=== PATIENT | female | born 2000 | race Caucasian/White ===

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

== ENCOUNTER 2022-05-20 13:40 | Emergency (ER) | payer MEDICAID, OTHER | END 2022-05-20 14:41 | disposition home or self-care (01) | LOC: JP.ED 13:40 | DX: Z30.432 Encounter for removal of intrauterine contraceptive device (principal); Z88.0 Allergy status to penicillin | CPT/HCPCS: 99282; 99283 ==

== ENCOUNTER 2022-12-27 19:19 | Inpatient (IN) | payer MEDICAID ==
[2022-12-27 19:34] LABS: BASOPHILS ABSOLUTE AUTO 0.04 K/uL (0.00-0.10); BASOPHILS PERCENT AUTO 0.4 % (0.1-1.3); EOSINOPHILS ABSOLUTE AUTO 0.03 K/uL (0.00-0.40); EOSINOPHILS PERCENT AUTO 0.3 % (0.0-5.4); HEMATOCRIT 42.8 % (34.3-46.0); HEMOGLOBIN 14.5 g/dL (11.2-15.5); IMMATURE GRAN ABSOLUTE AUTO 0.13 K/uL (0.00-0.23); IMMATURE GRAN PERCENT AUTO 1.2 % (0.0-0.7); LYMPHOCYTES ABSOLUTE AUTO 2.34 K/uL (0.8-3.3); LYMPHOCYTES PERCENT AUTO 21.8 % (11.4-47.7); MEAN CORPUSCULAR HEMOGLOBIN 29.1 pg (31.6-35.5); MEAN CORPUSCULAR HGB CONC 33.9 g/dL (31.6-35.5); MEAN CORPUSCULAR VOLUME 85.8 fL (81.4-99.0); MONOCYTES ABSOLUTE AUTO 0.54 K/uL (0.20-0.90); NEUTROPHILS ABSOLUTE AUTO 7.64 K/uL (1.0-7.6); NEUTROPHILS PERCENT AUTO 71.3 % (40.0-78.1); PLATELET COUNT,PLT 208 K/uL (130-375); RED BLOOD CELL COUNT 4.99 M/uL (3.77-5.24); WHITE BLOOD CELL COUNT,WBC 10.7 K/uL (3.2-11.0)
[2022-12-27] MEDS ORDERED: HYDROmorphone 0.5 MG/0.5 ML Syringe IVPUSH ONE (19:35)
[2022-12-27] MEDS ORDERED: Ondansetron 4 MG/2 ML SDV IVPUSH ONE (19:35)
[2022-12-27] MEDS ORDERED: Sodium Chloride 0.9% 50 ML IV SCH (19:45)
[2022-12-27] MEDS ORDERED: Iopamidol 612 MG/ML 100 ML Bottle IV SCH (19:45)
[2022-12-27] MEDS ORDERED: Sodium Chloride 0.9% 1,000 ML IV SCH (19:45)
[2022-12-27 19:51] LABS: A/G RATIO 1.3 (1.2-2.2); ALANINE AMINOTRANSFERASE,ALT 26 U/L (12-78); ALBUMIN 4.2 g/dL (3.4-5.0); ALKALINE PHOSPHATASE 119 U/L (46-116); ASPARTATE AMNIOTRANSFERASE,AST 24 U/L (15-37); BILIRUBIN TOTAL 0.5 mg/dL (0.2-1.0); BLOOD UREA NITROGEN,BUN 15 mg/dL (7-18); CALCIUM 8.6 mg/dL (8.5-10.1); CARBON DIOXIDE,CO2 20 mmol/L (21-32); CHLORIDE,CL 103 mmol/L (100-108); ESTIMATED GFR 83 mL/min (>60); GLUCOSE RANDOM 89 mg/dL (74-106); POTASSIUM,K 3.8 mmol/L (3.6-5.2); PROTEIN TOTAL,TP 7.5 g/dL (6.4-8.2); SODIUM,NA 138 mmol/L (140-148)
[2022-12-27 19:52] LABS: ANION GAP 18.8 mmol/L (5.0-14.0)
[2022-12-27] MEDS ORDERED: HYDROmorphone 1 MG/ML Syringe IVPUSH ONE ×2 (20:13→22:47)
[2022-12-27] MEDS ORDERED: Naloxone 0.4 MG/ML SDV IVPUSH PRN (22:47)
[2022-12-28] MEDS ORDERED: Acetaminophen 325 MG Tab PO PRN (00:24)
[2022-12-28] MEDS ORDERED: Ondansetron 4 MG/2 ML SDV IV PRN (00:24)
[2022-12-28] MEDS ORDERED: Pantoprazole 40 MG Vial IV ONE (00:24)
[2022-12-28] MEDS ORDERED: Ondansetron 4 MG Tab.DIS PO PRN (00:24)
[2022-12-28] MEDS ORDERED: Naloxone 0.4 MG/ML SDV IVPUSH PRN (00:24)
[2022-12-28] MEDS ORDERED: LORazepam 2 MG/ML SDV IV PRN (00:24)
[2022-12-28 00:37] LABS: HEMATOCRIT 36.6 % (34.3-46.0); HEMOGLOBIN 12.3 g/dL (11.2-15.5)
[2022-12-28] MEDS: HYDROmorphone 1 MG/ML Syringe IVPUSH PRN ×7 (01:35→23:18)
[2022-12-28] MEDS: Sodium Chloride 0.9% 1,000 ML IV SCH ×3 (01:38→13:20)
[2022-12-28] MEDS: Docusate Sodium 100 MG Cap PO SCH ×3 (01:42→20:18)
[2022-12-28] MEDS ORDERED: Sodium Chloride 0.9% 500 ML IV ONE (04:11)
[2022-12-28 04:40] LABS: APPEARANCE,URINE CLEAR (CLEAR); BILIRUBIN,URINE NEGATIVE (NEGATIVE); COLOR,URINE YELLOW (YELLOW); GLUCOSE,URINE NEGATIVE (NEGATIVE); KETONES,URINE 15 mg/dL (NEGATIVE); LEUKOCYTE ESTERASE,URINE NEGATIVE (NEGATIVE); NITRITE,URINE NEGATIVE (NEGATIVE); OCCULT BLOOD,URINE NEGATIVE (NEGATIVE); PH,URINE 5.5 (5.0-8.0); PROTEIN,URINE NEGATIVE (NEGATIVE); UROBILINOGEN,URINE 0.2 EU/dL (0.2-1.0)
[2022-12-28 04:45] LABS: AMORPHOUS SEDIMENT,URINE NOT SEEN; BACTERIA,URINE RARE; EPITHELIAL CELLS,URINE RARE; MUCUS,URINE FEW; RBC,URINE 0-5 (0-5); WBC,URINE 0-5 (0-5)
[2022-12-28] MEDS: Acetaminophen/HYDROcodone 325-5 MG Tab PO PRN ×4 (05:15→20:19)
[2022-12-28 07:23] LABS: HEMATOCRIT 34.2 % (34.3-46.0); HEMOGLOBIN 11.2 g/dL (11.2-15.5)
[2022-12-28] MEDS: Cyclobenzaprine 10 MG Tab PO PRN ×2 (09:43→23:12)
[2022-12-28] MEDS: diphenhydrAMINE 25 MG Cap PO PRN ×2 (15:25→20:28)
[2022-12-29] MEDS: Acetaminophen/HYDROcodone 325-5 MG Tab PO PRN ×2 (00:22→08:03)
[2022-12-29] MEDS ORDERED: Diazepam 2 MG Tab PO PRN (02:14)
[2022-12-29] MEDS ORDERED: HYDROmorphone 1 MG/ML Syringe IVPUSH PRN (02:32)
[2022-12-29] MEDS ORDERED: Lidocaine 4% 1 each Patch TOP SCH (03:00)
[2022-12-29] MEDS: Ketorolac 30 MG/ML SDV IVPUSH SCH ×2 (04:19→08:35)
[2022-12-29 06:02] LABS: HEMATOCRIT 34.8 % (34.3-46.0); HEMOGLOBIN 11.2 g/dL (11.2-15.5); MEAN CORPUSCULAR HEMOGLOBIN 28.9 pg (31.6-35.5); MEAN CORPUSCULAR HGB CONC 32.2 g/dL (31.6-35.5); MEAN CORPUSCULAR VOLUME 89.7 fL (81.4-99.0); RED BLOOD CELL COUNT 3.88 M/uL (3.77-5.24); WHITE BLOOD CELL COUNT,WBC 6.1 K/uL (3.2-11.0)
[2022-12-29 06:18] LABS: ANION GAP 9.6 mmol/L (5.0-14.0); CALCIUM 7.6 mg/dL (8.5-10.1); CREATININE 0.9 mg/dL (0.6-1.0); EST CRCL DRUG DOSING (CG) 86.1 mL/min; POTASSIUM,K 3.6 mmol/L (3.6-5.2)
[2022-12-29] MEDS: Docusate Sodium 100 MG Cap PO SCH (08:03)
[2022-12-29] MEDS: diphenhydrAMINE 25 MG Cap PO PRN (10:02)
[2022-12-29] MEDS: Cyclobenzaprine 10 MG Tab PO PRN (10:02)
[2022-12-29] MEDS ORDERED: Ibuprofen 600 MG Tab PO PRN (10:02)
[2022-12-29] MEDS ORDERED: oxyCODONE 5 MG Tab PO PRN (10:03)
[2022-12-30] MEDS ORDERED: Lidocaine 4% 1 each Patch TOP SCH (09:00)
== END 2022-12-29 15:47 | disposition home or self-care (01) | DRG 552 ==
LOC: JP.ED 19:19 → JP.ICU 23:13 → OBSVTOIN 12-28 15:50
PROVIDERS: ADMIT Internal Medicine; ATTEND Internal Medicine
DX: S32.010A Wedge compression fracture of first lumbar vertebra, initial encounter for closed fracture (principal); S32.592A Other specified fracture of left pubis, initial encounter for closed fracture; K31.9 Disease of stomach and duodenum, unspecified; F41.9 Anxiety disorder, unspecified; F32.A Depression, unspecified; F90.9 Attention-deficit hyperactivity disorder, unspecified type; F17.210 Nicotine dependence, cigarettes, uncomplicated; K21.9 Gastro-esophageal reflux disease without esophagitis; V80.010A Animal-rider injured by fall from or being thrown from horse in noncollision accident, initial encounter; Y92.89 Other specified places as the place of occurrence of the external cause; Z98.890 Other specified postprocedural states; Z88.8 Allergy status to other drugs, medicaments and biological substances; Z88.0 Allergy status to penicillin
CPT/HCPCS: 36415; 70450; 72125; 72131; 74177; 76377; 80048; 80053; 81001; 84703; 85014; 85018; 85025; 85027; 97110-GP; 97116-GP; 97161-GP; 97165-GO; A9270-GY; C9113; J1170; J1885; J2405; J3490; J7030; J7040; Q9967; U0002

== ENCOUNTER 2023-03-10 17:13 | Emergency (ER) | payer MEDICAID ==
[2023-03-10] MEDS ORDERED: HYDROmorphone 1 MG/ML Syringe IM ONE (17:35)
== END 2023-03-10 18:20 | disposition home or self-care (01) ==
LOC: JP.ED 17:13
DX: M54.50 Low back pain, unspecified (principal); Z86.16 Personal history of COVID-19; Z88.0 Allergy status to penicillin; F17.210 Nicotine dependence, cigarettes, uncomplicated
CPT/HCPCS: 96372; 99283; J1170

== ENCOUNTER 2023-03-22 20:41 | Emergency (ER) | payer MEDICAID ==
[2023-03-22] MEDS ORDERED: HYDROmorphone 0.5 MG/0.5 ML Syringe IM ONE (21:36)
[2023-03-22] MEDS ORDERED: Naloxone 0.4 MG/ML SDV IVPUSH PRN (21:36)
[2023-03-22] MEDS ORDERED: Ketorolac 15 MG/ML SDV IM ONE (21:37)
== END 2023-03-22 22:08 | disposition home or self-care (01) ==
LOC: JP.ED 20:41
DX: M54.50 Low back pain, unspecified (principal); S32.010D Wedge compression fracture of first lumbar vertebra, subsequent encounter for fracture with routine healing; F17.200 Nicotine dependence, unspecified, uncomplicated; Z88.0 Allergy status to penicillin; Z86.16 Personal history of COVID-19; V80.010D Animal-rider injured by fall from or being thrown from horse in noncollision accident, subsequent encounter
CPT/HCPCS: 96372; 99283; J1885

== ENCOUNTER 2024-05-14 02:58 | Emergency (ER) | payer MEDICAID ==
[2024-05-14] MEDS ORDERED: Sodium Chloride 0.9% 10 ML Syringe FLUSH PRN (03:50)
[2024-05-14 04:02] LABS: BASOPHILS ABSOLUTE AUTO 0.04 K/uL (0.00-0.10); BASOPHILS PERCENT AUTO 0.7 % (0.1-1.3); EOSINOPHILS ABSOLUTE AUTO 0.22 K/uL (0.00-0.40); EOSINOPHILS PERCENT AUTO 3.7 % (0.0-5.4); HEMATOCRIT 37.8 % (34.3-46.0); LYMPHOCYTES ABSOLUTE AUTO 2.66 K/uL (0.8-3.3); LYMPHOCYTES PERCENT AUTO 44.9 % (11.4-47.7); MEAN CORPUSCULAR HEMOGLOBIN 28.9 pg (31.6-35.5); MEAN CORPUSCULAR HGB CONC 34.4 g/dL (31.6-35.5); MONOCYTES ABSOLUTE AUTO 0.43 K/uL (0.20-0.90); MONOCYTES PERCENT AUTO 7.3 % (3.3-12.6); NEUTROPHILS ABSOLUTE AUTO 2.57 K/uL (1.0-7.6); NEUTROPHILS PERCENT AUTO 43.4 % (40.0-78.1); PLATELET COUNT,PLT 199 K/uL (130-375); WHITE BLOOD CELL COUNT,WBC 5.9 K/uL (3.2-11.0)
[2024-05-14 04:20] LABS: ANION GAP 11.1 mmol/L (5.0-14.0); C-REACTIVE PROTEIN 0.8 mg/dL (<0.50); CALCIUM 8.7 mg/dL (8.5-10.1); EST CRCL DRUG DOSING (CG) 76.85 mL/min; POTASSIUM,K 3.9 mmol/L (3.6-5.2)
[2024-05-14] MEDS: Iopamidol 612 MG/ML 100 ML Bottle IV SCH (04:47)
[2024-05-14] MEDS: Sodium Chloride 0.9% 10 ML Syringe FLUSH PRN (04:47)
[2024-05-14] MEDS: Sodium Chloride 0.9% 100 ML IV SCH (04:47)
== END 2024-05-14 06:13 | disposition home or self-care (01) ==
LOC: JP.ED 02:58
DX: K64.4 Residual hemorrhoidal skin tags (principal); F17.210 Nicotine dependence, cigarettes, uncomplicated; Z86.16 Personal history of COVID-19; Z88.0 Allergy status to penicillin; Z79.899 Other long term (current) drug therapy
CPT/HCPCS: 36415; 74177; 80048; 82272; 84703; 85025; 86140; 99284; 99285; Q9967

== ENCOUNTER 2024-11-02 21:10 | Emergency (ER) | payer MEDICAID | END 2024-11-02 23:29 | disposition home or self-care (01) | LOC: JP.ED 21:10 | DX: S92.211A Displaced fracture of cuboid bone of right foot, initial encounter for closed fracture (principal); F17.200 Nicotine dependence, unspecified, uncomplicated; Z79.899 Other long term (current) drug therapy; Z88.0 Allergy status to penicillin; Z86.16 Personal history of COVID-19; X50.1XXA Overexertion from prolonged static or awkward postures, initial encounter | CPT/HCPCS: 73600-26-RT; 73600-RT; 73630-26-RT; 73630-RT; 99283 ==

== ENCOUNTER 2024-12-05 07:20 | Day surgery (SDC) | payer MEDICAID ==
[2024-12-05] MEDS ORDERED: fentaNYL 50 MCG/ML SDV ONE (08:03)
[2024-12-05] MEDS ORDERED: Propofol 200 MG/20 ML SDV ONE ×2 (08:03→09:13)
[2024-12-05] MEDS ORDERED: Midazolam 1 MG/ML 2 ML SDV ONE (08:03)
[2024-12-05] MEDS: Lactated Ringers 1,000 ML IV SCH (08:19)
== END 2024-12-05 10:48 | disposition home or self-care (01) ==
LOC: JP.SDS 07:20
PROVIDERS: ATTEND Surgery
DX: K92.2 Gastrointestinal hemorrhage, unspecified (principal); K64.8 Other hemorrhoids; K64.4 Residual hemorrhoidal skin tags; Z88.1 Allergy status to other antibiotic agents
CPT/HCPCS: 45398; 81025; J2250; J2704; J3010; J7120; 00811-QZ